=== PATIENT | female | born 1960 | race Caucasian/White ===

== ENCOUNTER 2016-04-13 11:38 | Emergency (ER) | payer SELFPAY ==
[~2016-04-13] VITALS: Ht 170.2 cm; Wt 80.0 kg
[~2016-04-13 11:38] MED LIST: CLIN1CAP6 PO; IBUP800T23 PO; MAGICADU2 SWISH-SPIT; PERI0.126 SWISH-SPIT; PRED-503 PO; ROBA500T PO
[2016-04-13 11:42] VITALS: BP 147/71; PULSE 100; RESP 15; TEMP 98.2; O2SAT 96
[2016-04-13] MEDS ORDERED: CELE40TA PO (11:51)
--- NOTE | 2016-04-13 12:11 | PD ---
HPI Chief Complaint: Medical Clearance Time Seen by Provider: 12:02 Travel History International Travel<30 days: No Contact w/Intl Traveler<30days: No Traveled to known affect area: No History of Present Illness HPI 56-year-old female here for evaluation because she does not recall what occurred during 2 hours of her life yesterday. Apparently she went to [facility] yesterday at around 11 AM. She ordered food and placed on a table. She then was seen wandering outside of [facility], and [facility] staff contacted her at around 1 :30 PM to ask her if she was all right. She told him that she felt well, however when she looked at her watch it was 2 hours after she had initially arrived to [facility]. She does not recall what occurred during this time. She states that she works 2 jobs and has had only 1 hour of sleep in the last 6 days and believes that this might be the culprit. She does not take any drugs or medications. Her Celexa prescription ran out about one month ago. No alcohol. No headaches. No chest pain or dyspnea. Patient also has noticed bilateral lower extremity edema. No history of DVT or PE. She is having some cramping sensation in her bilateral legs. No paresthesias or motor deficits. No history of seizures. She states that yesterday afternoon after the event occurred she went home and fell asleep, and that is why she was not evaluated yesterday. PFSH Past Medical History Hx Anticoagulant Therapy: No ADD: Yes ADHD: Yes Blood Disorders: No Anxiety: Yes Depression: Yes Cancer: Yes (R BREAST CANCER) Cardiovascular Problems: No Chemotherapy: No Chest Pain: Yes Cerebrovascular Accident: No Diabetes: No Diminished Hearing: No Endocrine: Yes (HYPOGLYCEMIA) Gastrointestinal Disorders: No Genitourinary: No Hepatitis: No Hiatal Hernia: No Immune Disorder: No Implanted Vascular Access Dvce: Yes Musculoskeletal: Yes Neurologic: No Psychiatric: Yes Respiratory: No Radiation Therapy: Yes Thyroid Disease: No PNEUMOCCOCAL Vaccine (Year): 2 Menopausal: Yes Dilation and Curettage (D&C): Yes Past Surgical History Abdominal Surgery: No AICD: No Cardiac Surgery: No Ear Surgery: No Endocrine Surgery: No Eye Surgery: No Genitourinary Surgery: No Gynecologic Surgery: Yes (D&C) Hysterectomy: No Joint Replacement: No Mastectomy: Yes (RT MASTECTOMY W/ RECONSTRUCTION 12/2011) Neurologic Surgery: No Oral Surgery: No Pacemaker: No Thoracic Surgery: Yes (PORT INSERTION, R MASTECTOMY) Social History Alcohol Use: Yes Tobacco Use: Yes (1PPD) Substance Use: No Allergies-Medications (Allergen,Severity, Reaction): Coded Allergies: No Known Allergies (Verified , 03/18/16) Reported Meds & Prescriptions Reported Meds & Active Scripts Active Reported Celexa (Citalopram Hydrobromide) 40 Mg Tab 40 Mg PO DAILY Review of Systems Except as stated in HPI: all other systems reviewed are Neg Physical Exam Narrative GENERAL: Well-developed, well-nourished, awake, alert, comfortable, no acute distress. SKIN: Warm and dry. HEAD: Atraumatic. Normocephalic. EYES: Pupils equal and round. No scleral icterus. No injection or drainage. ENT: Mucous membranes pink and moist. NECK: Trachea midline. No JVD. No nuchal rigidity. CARDIOVASCULAR: Regular rate and rhythm. RESPIRATORY: No accessory muscle use. Clear to auscultation. Breath sounds equal bilaterally. GASTROINTESTINAL: Abdomen soft, non-tender, nondistended. MUSCULOSKELETAL: No obvious deformities. No clubbing. No cyanosis. No edema. NEUROLOGICAL: Awake and alert. No obvious cranial nerve deficits. Motor grossly within normal limits. Normal speech. No focal deficits. PSYCHIATRIC: Appropriate mood and affect; insight and judgment normal. Data Data Last Documented VS Vital Signs Date Time Temp Pulse Resp B/P Pulse Ox O2 Delivery O2 Flow Rate FiO2 04/13/16 12:13 96 Room Air 04/13/16 11:42 98.2 100 15 147/71 Orders Basic Metabolic Panel (Bmp) (04/13/16 12:07) Complete Blood Count With Diff (04/13/16 12:07) Magnesium (Mg) (04/13/16 12:07) Prothrombin Time / Inr (Pt) (04/13/16 12:07) Act Partial Throm Time (Ptt) (04/13/16 12:07) Ecg Monitoring (04/13/16 12:07) Iv Access Insert/Monitor (04/13/16 12:07) Oximetry (04/13/16 12:07) Sodium Chloride 0.9% Flush (Ns Flush) (04/13/16 12:15) Ct Brain W/O Iv Contrast(Rout) (04/13/16 ) Us Leg Venous Doppler Bilat (04/13/16 ) Electrocardiogram (04/13/16 ) Labs Laboratory Tests Test 04/13/16 12:22 White Blood Count 8.7 TH/MM3 Red Blood Count 4.56 MIL/MM3 Hemoglobin 13.7 GM/DL Hematocrit 39.4 % Mean Corpuscular Volume 86.5 FL Mean Corpuscular Hemoglobin 30.0 PG Mean Corpuscular Hemoglobin 34.6 % Concent Red Cell Distribution Width 13.4 % Platelet Count 233 TH/MM3 Mean Platelet Volume 8.3 FL Neutrophils (%) (Auto) 72.9 % Lymphocytes (%) (Auto) 16.8 % Monocytes (%) (Auto) 8.0 % Eosinophils (%) (Auto) 1.2 % Basophils (%) (Auto) 1.1 % Neutrophils # (Auto) 6.4 TH/MM3 Lymphocytes # (Auto) 1.5 TH/MM3 Monocytes # (Auto) 0.7 TH/MM3 Eosinophils # (Auto) 0.1 TH/MM3 Basophils # (Auto) 0.1 TH/MM3 CBC Comment DIFF FINAL Differential Comment Prothrombin Time 10.8 SEC Prothromb Time International 1.0 RATIO Ratio Activated Partial 25.4 SEC Thromboplast Time Sodium Level 139 MEQ/L Potassium Level 3.9 MEQ/L Chloride Level 105 MEQ/L Carbon Dioxide Level 26.2 MEQ/L Anion Gap 8 MEQ/L Blood Urea Nitrogen 19 MG/DL Creatinine 0.93 MG/DL Estimat Glomerular Filtration 62 ML/MIN Rate Random Glucose 87 MG/DL Calcium Level 8.7 MG/DL Magnesium Level 1.9 MG/DL MDM Medical Decision Making Medical Screen Exam Complete: Yes Emergency Medical Condition: Yes Differential Diagnosis Sleep deprivation, electrolyte abnormality, intracranial abnormality, DVT, venous insufficiency, fluid overload, renal insufficiency, dissociative fugue Narrative Course Vital signs reviewed. CBC is unremarkable. BMP is unremarkable. Head CT read as normal exam. Bilateral lower extremity duplex read as normal exam. Patient was made aware of all findings. She is resting comfortably. She is completely asymptomatic here in the emergency department. I am not sure what caused her symptoms yesterday. Sleep deprivation could be the culprit as she has only had a couple hours of sleep in the last 6 days. Her bilateral lower extremity edema is likely secondary to venous insufficiency/standing on her feet all day. I believe she is stable for discharge home with outpatient follow -up with her primary care physician this week. She was informed on when to return to the emergency department. She verbalizes understanding and agreement with plan. Diagnosis Primary Impression: Sleep deprivation Additional Impression: Bilateral leg edema Referrals: Primary Care Physician 3 days Additional Instructions: Follow-up with your primary care physician this week. Return to the emergency department for worsening symptoms or any other concerns. Disposition: 01 DISCHARGE HOME Condition: Stable David Valenzuela MD Apr 13, 2016 12:11
[2016-04-13 12:13] VITALS: O2SAT 96
[2016-04-13] MEDS ORDERED: SODIUM CHLORIDE 0.9% FLUSH 5 ML FLUSH IVF PRN (12:15)
[2016-04-13 12:29] LABS: AUTOMATED NEUTROPHIL # 6.4 TH/MM3 (1.8-7.7); BASOPHIL # 0.1 TH/MM3 (0-0.2); BASOPHIL % 1.1 % (0.0-2.0); EOSINOPHIL # 0.1 TH/MM3 (0-0.4); EOSINOPHIL % 1.2 % (0.0-4.0); HEMATOCRIT 39.4 % (35.0-46.0); HEMO FLAGS DIFF FINAL; LYMPH % 16.8 % (9.0-44.0); LYMPHOCYTE # 1.5 TH/MM3 (1.0-4.8); MEAN CELL VOLUME 86.5 FL (80.0-100.0); MEAN CORPUSCULAR HGB CONC 34.6 % (32.0-36.0); NEUT % 72.9 % (16.0-70.0); PLATELET COUNT 233 TH/MM3 (150-450); RED BLOOD COUNT 4.56 MIL/MM3 (4.00-5.30); RED CELL DISTRIBUTION WIDTH 13.4 % (11.6-17.2); WHITE BLOOD COUNT 8.7 TH/MM3 (4.0-11.0)
[2016-04-13 12:44] LABS: BICARBONATE 26.2 MEQ/L (21.0-32.0); MAGNESIUM 1.9 MG/DL (1.5-2.5); POTASSIUM 3.9 MEQ/L (3.5-5.1)
[2016-04-13 12:48] LABS: APTT (PATIENT) 25.4 SEC (24.3-30.1); PROTHROMBIN TIME - PATIENT 10.8 SEC (9.8-11.6)
--- NOTE | 2016-04-13 13:15 | RADRPT ---
EXAM DATE/TIME: 04/13/2016 12:48 [facility] COMPARISON: No previous studies available for comparison. INDICATIONS : Bilateral leg swelling. MEDICAL HISTORY : Breast cancer. Hypoglycemia. SURGICAL HISTORY : Right mastectomy. Port placement. Dilation and curettage. ENCOUNTER: Initial ACUITY: 3 days PAIN SCORE: 0/10 LOCATION: Bilateral legs. TECHNIQUE: Venous ultrasound of the left and right leg was performed from the inguinal ligament to the proximal calf. Real-time, color Doppler and spectral tracing, compression and augmentation techniques were us ed. FINDINGS: RIGHT LEG: There is normal compressibility of the deep venous system from the inguinal region to the proximal ca lf. No echogenic clot is seen in the lumen of the common femoral, femoral, popliteal, and posterior tibial veins. There is a normal response of the venous system to proximal and distal augmentation an d respiration. LEFT LEG: There is normal compressibility of the deep venous system from the inguinal region to the proximal ca lf. No echogenic clot is seen in the lumen of the common femoral, femoral, popliteal, and posterior tibial veins. There is a normal response of the venous system to proximal and distal augmentation an d respiration. CONCLUSION: Normal examination. Jimy Cheung MD on April 13, 2016 at 13:13 Board Certified Radiologist. This report was verified electronically.
--- NOTE | 2016-04-13 13:28 | RADRPT ---
EXAM DATE/TIME: 04/13/2016 13:17 [facility] COMPARISON: CT BRAIN W/O CONTRAST, August 09, 2012, 8:55. INDICATIONS : Patient states she blanked out yesterday. RADIATION DOSE: 56.35 CTDIvol (mGy) MEDICAL HISTORY : Carcinoma, breast. SURGICAL HISTORY : Mastectomy, right. ENCOUNTER: Initial ACUITY: 2 days PAIN SCALE: 0/10 LOCATION: cranial TECHNIQUE: Multiple contiguous axial images were obtained of the head. Using automated exposure control and adj ustment of the mA and/or kV according to patient size, radiation dose was kept as low as reasonably a chievable to obtain optimal diagnostic quality images. FINDINGS: CEREBRUM: The ventricles are normal for age. No evidence of midline shift, mass lesion, hemorrhage or acute in farction. No extra-axial fluid collections are seen. POSTERIOR FOSSA: The cerebellum and brainstem are intact. The 4th ventricle is midline. The cerebellopontine angle i s unremarkable. EXTRACRANIAL: The visualized portion of the orbits is intact. SKULL: The calvaria is intact. No evidence of skull fracture. CONCLUSION: Normal examination. Jimy Cheung MD on April 13, 2016 at 13:27 Board Certified Radiologist. This report was verified electronically.
[2016-04-13 13:44] VITALS: PULSE 80
--- NOTE | 2016-04-14 19:43 | EKG ---
Date Performed: 04/13/2016 Time Performed: 12:17:00 PTAGE: 56 years EKG: Sinus rhythm NORMAL ECG PREVIOUS TRACING : 05/17/2013 09.39 DOCTOR: Antonio Shaw Interpretating Date/Time 04/14/2016 19:36:51
== END 2016-04-13 14:17 | disposition home or self-care (01) ==
LOC: NEPA 11:38
DX: R60.0 Localized edema (principal); E16.2 Hypoglycemia, unspecified; F41.8 Other specified anxiety disorders; F17.210 Nicotine dependence, cigarettes, uncomplicated; Z72.820 Sleep deprivation; Z85.3 Personal history of malignant neoplasm of breast
CPT/HCPCS: 70450; 80048; 83735; 85025; 85610; 85730; 93005; 93970

== ENCOUNTER 2016-04-26 13:25 | Emergency (ER) | payer SELFPAY ==
[~2016-04-26] VITALS: Ht 170.2 cm; Wt 77.0 kg
[~2016-04-26 13:25] MED LIST changes: +CELE40TA PO; -CLIN1CAP6 PO; -IBUP800T23 PO; -MAGICADU2 SWISH-SPIT; -PERI0.126 SWISH-SPIT; -PRED-503 PO; -ROBA500T PO
[2016-04-26 13:27] VITALS: BP 132/68; PULSE 100; RESP 18; TEMP 97.6; O2SAT 98
--- NOTE | 2016-04-26 13:48 | PD ---
HPI Chief Complaint: Complaint Time Seen by Provider: 13:44 Travel History International Travel<30 days: No Contact w/Intl Traveler<30days: No Traveled to known affect area: No History of Present Illness HPI 56-year-old female presents to the emergency department with complaint of dysuria, urgency, frequency , hesitancy 3 days. Denies hematuria. Denies nausea, vomiting, abdominal pain. Denies fever, chills. Denies low back pain. Denies vaginal discharge, odor, itch, lesions. Has not taken any medications to alleviate her symptoms. Has tried increasing her fluid intake to flush her urinary tract. Has history of urinary tract infections and symptoms are similar. No known allergies. Denies history of kidney stones. No other modifying factors or associated signs and symptoms. PFSH Past Medical History Hx Anticoagulant Therapy: No ADD: Yes ADHD: Yes Blood Disorders: No Anxiety: Yes Depression: Yes Cancer: Yes (R BREAST CANCER) Cardiovascular Problems: Yes (CAD) Chemotherapy: Yes ([id number] for breast cancer ) Chest Pain: Yes Cerebrovascular Accident: No Diabetes: No Diminished Hearing: No Endocrine: Yes (HYPOGLYCEMIA) Gastrointestinal Disorders: No Genitourinary: No Hepatitis: No Hiatal Hernia: No Immune Disorder: No Implanted Vascular Access Dvce: Yes Musculoskeletal: Yes Neurologic: No Psychiatric: Yes Respiratory: No Radiation Therapy: Yes Thyroid Disease: No PNEUMOCCOCAL Vaccine (Year): 2 ?: Unknown Menopausal: Yes Dilation and Curettage (D&C): Yes Past Surgical History Abdominal Surgery: No AICD: No Cardiac Surgery: No Ear Surgery: No Endocrine Surgery: No Eye Surgery: No Genitourinary Surgery: No Gynecologic Surgery: Yes (D&C) Hysterectomy: No Joint Replacement: No Mastectomy: Yes (RT MASTECTOMY W/ RECONSTRUCTION 12/2011) Neurologic Surgery: No Oral Surgery: No Pacemaker: No Thoracic Surgery: Yes (PORT INSERTION, R MASTECTOMY) Social History Alcohol Use: Yes Tobacco Use: Yes (1PPD) Substance Use: No Allergies-Medications (Allergen,Severity, Reaction): Coded Allergies: No Known Allergies (Verified , 04/26/16) Reported Meds & Prescriptions Reported Meds & Active Scripts Active Ibuprofen 800 Mg Tab 800 Mg PO Q6HR PRN Pyridium (Phenazopyridine HCl) 100 Mg Tab 100 Mg PO Q8H PRN Keflex (Cephalexin) 500 Mg Cap 500 Mg PO Q12H 7 Days Reported Celexa (Citalopram Hydrobromide) 40 Mg Tab 40 Mg PO DAILY Review of Systems Except as stated in HPI: all other systems reviewed are Neg Physical Exam Narrative GENERAL: Well-nourished, well-developed female patient, in no acute distress; afebrile, nontoxic-appearing SKIN: Warm and dry. No rash. HEAD: Atraumatic. Normocephalic. EYES: Pupils equal and round. No scleral icterus. No injection or drainage. ENT: Mucosa pink and moist. NECK: Trachea midline. CARDIOVASCULAR: Regular rate. RESPIRATORY: No accessory muscle use. GASTROINTESTINAL: Abdomen soft, non-tender, nondistended. Hepatic and splenic margins not palpable. Bowel sounds are active 4 quadrants. Bladder nontender and nondistended. MUSCULOSKELETAL: No obvious deformities. No clubbing. No cyanosis. No edema. BACK: No CVA tenderness NEUROLOGICAL: Awake and alert. Oriented 3. No obvious cranial nerve deficits. Motor grossly within normal limits. Normal speech. Moves all extremities. 5/5 strength to all extremities. PSYCHIATRIC: Appropriate mood and affect; insight and judgment normal. Data Data Last Documented VS Vital Signs Date Time Temp Pulse Resp B/P Pulse Ox O2 Delivery O2 Flow Rate FiO2 04/26/16 13:27 97.6 100 18 132/68 98 Room Air Orders Urinalysis - C+S If Indicated (04/26/16 13:35) Urine Culture (04/26/16 14:00) Labs Laboratory Tests Test 04/26/16 14:00 Urine Color YELLOW Urine Turbidity HAZY Urine pH 5.5 Urine Specific [place] 1.016 Urine Protein NEG mg/dL Urine Glucose (UA) NEG mg/dL Urine Ketones NEG mg/dL Urine Occult Blood NEG Urine Nitrite NEG Urine Bilirubin NEG Urine Urobilinogen LESS THAN 2.0 MG/DL Urine Leukocyte Esterase LARGE Urine WBC 62 /hpf Urine Squamous Epithelial 4 /hpf Cells Urine Mucus FEW /lpf Microscopic Urinalysis Comment CULTURE INDICATED MDM Medical Decision Making Medical Screen Exam Complete: Yes Emergency Medical Condition: Yes Medical Record Reviewed: Yes Differential Diagnosis Urinary tract infection, pyelonephritis, cystitis Narrative Course 56-year-old female with urinary symptoms 3 days. No CVA tenderness. No abdominal pain. Denies vaginal symptoms. Patient is afebrile and nontoxic- appearing. Denies fever, chills, nausea, vomiting. Urinalysis ordered. 1448: Urinalysis with signs of infection. Keflex and Pyridium prescribed for home. Patient is medically cleared and stable for discharge. Discussed reasons to return to the emergency department. Instructed patient to follow up with primary care provider. Patient agrees with treatment plan. The patients vital signs are stable and the patient is stable for outpatient follow-up and treatment. Patient discharged home, stable and in no acute distress. Diagnosis Primary Impression: UTI (urinary tract infection) Qualified Code: N39.0 - Urinary tract infection without hematuria, site unspecified Referrals: Primary Care Physician Patient Instructions: General Instructions, Urinary Tract Infection in Women ( ED) Departure Forms: Tests/Procedures, Work Release Enter return to work date: Apr 27, 2016 Additional Instructions: Take antibiotics as prescribed and complete full course Take Pyridium for bladder spasms: Pyridium will turn your urine bright orange Drink plenty of fluids Maintain good personal hygiene Follow-up with primary care provider Return to the emergency department immediately with worsening of symptoms Med/Other Pt SpecificInfo: Prescription(s) given Scripts Ibuprofen 800 Mg [id number] Mg PO Q6HR PRN (PAIN) #30 TAB Ref 0 Prov:Stephania Chou 04/26/16 Phenazopyridine (Pyridium)100 Mg [id number] Mg PO Q8H PRN (DYSURIA) #10 TAB Ref 0 Prov:Stephania Chou 04/26/16 Cephalexin (Keflex)500 Mg [id number] Mg PO Q12H 7 Days Ref 0 Prov:Stephania Chou 04/26/16 Disposition: 01 DISCHARGE HOME Condition: Stable Stephania Chou Apr 26, 2016 13:48
[2016-04-26 14:43] LABS: BLOOD, URINE NEG (NEG); COMMENT (UR) CULTURE INDICATED; CULTURE IF INDICATED CULTURE INDICATED; GLUCOSE,URINE NEG (NEG); KETONE, URINE NEG (NEG); MUCUS URINE FEW /lpf (OCC); NITRITE,URINE NEG (NEG); PH, URINE 5.5 (5.0-8.5); SQUAMOUS EPITHELIAL CELL URINE 4 /hpf (0-5); URINE COLOR YELLOW (YELLW/STRAW)
[2016-04-26] MEDS ORDERED: CEPH-460 PO (14:49)
[2016-04-26] MEDS ORDERED: PHEN0.4T PO (14:49)
[2016-04-26] MEDS ORDERED: IBUP800T23 PO (14:50)
== END 2016-04-26 14:59 | disposition home or self-care (01) ==
LOC: NEPB 13:25
DX: N39.0 Urinary tract infection, site not specified (principal); B96.89 Other specified bacterial agents as the cause of diseases classified elsewhere
CPT/HCPCS: 81001; 87086; 99283

== ENCOUNTER 2016-06-29 12:42 | Emergency (ER) | payer SELFPAY ==
[~2016-06-29] VITALS: Ht 170.2 cm; Wt 77.0 kg
[~2016-06-29 12:42] MED LIST changes: +CEPH-460 PO; +IBUP800T23 PO; +PHEN0.4T PO
[2016-06-29 12:57] VITALS: BP 140/78; PULSE 91; RESP 18; TEMP 98.3; O2SAT 97
--- NOTE | 2016-06-29 13:35 | PD ---
HPI Chief Complaint: Cold / Flu Symptoms Time Seen by Provider: 13:10 Travel History International Travel<30 days: No Contact w/Intl Traveler<30days: No Traveled to known affect area: No History of Present Illness HPI Patient is 56 year old female presenting to emergency for evaluation of a cough. Patient states her cough has been ongoing for several months. She states it'll get better and then get worse again. She denies any fever, chills , nausea, vomiting, headache or shortness of breath. Patient is a daily tobacco user, she's been smoking since she was a teenager. Patient is not been evaluated by her primary care provider for this problem. Patient states that she felt as if she was getting worse so she presented to the emergency department for evaluation. PFSH Past Medical History Hx Anticoagulant Therapy: No ADHD: Yes Blood Disorders: No Anxiety: Yes Depression: Yes Cancer: Yes (R BREAST CANCER) Chemotherapy: Yes ([id number] for breast cancer ) Chest Pain: Yes Cerebrovascular Accident: No Coronary Artery Disease: Yes Diabetes: No Diminished Hearing: No Gastrointestinal Disorders: No Genitourinary: No Hepatitis: No Hiatal Hernia: No Immune Disorder: No Implanted Vascular Access Dvce: Yes Neurologic: No Respiratory: No Radiation Therapy: Yes Thyroid Disease: No PNEUMOCCOCAL Vaccine (Year): 2 Menopausal: Yes Dilation and Curettage (D&C): Yes Past Surgical History Abdominal Surgery: No AICD: No Cardiac Surgery: No Ear Surgery: No Endocrine Surgery: No Eye Surgery: No Genitourinary Surgery: No Gynecologic Surgery: Yes (D&C) Hysterectomy: No Joint Replacement: No Mastectomy: Yes (RT MASTECTOMY W/ RECONSTRUCTION 12/2011) Neurologic Surgery: No Oral Surgery: No Pacemaker: No Thoracic Surgery: Yes (PORT INSERTION, R MASTECTOMY) Social History Alcohol Use: Yes Tobacco Use: Yes (1PPD) Substance Use: No Allergies-Medications (Allergen,Severity, Reaction): Coded Allergies: No Known Allergies (Verified , 06/29/16) Reported Meds & Prescriptions Reported Meds & Active Scripts Active Ibuprofen 800 Mg Tab 800 Mg PO Q6HR PRN Pyridium (Phenazopyridine HCl) 100 Mg Tab 100 Mg PO Q8H PRN Keflex (Cephalexin) 500 Mg Cap 500 Mg PO Q12H 7 Days Reported Celexa (Citalopram Hydrobromide) 40 Mg Tab 40 Mg PO DAILY Review of Systems Except as stated in HPI: all other systems reviewed are Neg General / Constitutional: No: Fever, Chills HENT: Positive: Rhinitis Cardiovascular: No: Chest Pain or Discomfort Respiratory: Positive: Cough, No: Shortness of Breath, Wheezing, Pleuritic Pain Gastrointestinal: No: Nausea, Abdominal Pain Musculoskeletal: No: Myalgias Physical Exam Narrative GENERAL: Well-nourished, well-developed patient. SKIN: Focused skin assessment warm/dry. HEAD: Normocephalic. EYES: No scleral icterus. No injection or drainage. NECK: Supple, trachea midline. No JVD or lymphadenopathy. CARDIOVASCULAR: Regular rate and rhythm without murmurs, gallops, or rubs. RESPIRATORY: Breath sounds equal bilaterally. No accessory muscle use. No wheezes, rhonchi, rales noted. GASTROINTESTINAL: Abdomen soft, non-tender, nondistended. MUSCULOSKELETAL: No cyanosis, or edema. BACK: Nontender without obvious deformity. No CVA tenderness. Data Data Last Documented VS Vital Signs Date Time Temp Pulse Resp B/P Pulse Ox O2 Delivery O2 Flow Rate FiO2 06/29/16 12:57 98.3 91 18 140/78 97 Room Air Orders Chest, Pa & Lat (06/29/16 ) [facility] Medical Decision Making Medical Screen Exam Complete: Yes Emergency Medical Condition: Yes Interpretation(s) Last Impressions Chest X-Ray 06/29/16 0000 Signed Impressions: Service Date/Time: Wednesday, June 29, 2016 13:34 - CONCLUSION: No acute disease. Pankaj Clement MD FACR Vital Signs Date Time Temp Pulse Resp B/P Pulse Ox O2 Delivery O2 Flow Rate FiO2 06/29/16 12:57 98.3 91 18 140/78 97 Room Air Differential Diagnosis Chronic bronchitis secondary to undiagnosed COPD versus pneumonia versus allergic rhinitis versus other Narrative Course Patient is 56-year-old female presenting to emergency department for evaluation of several months of a cough. Her vital signs are stable, she is well oxygenated on room air. Will obtain chest x-ray to rule out acute infectious process however did duration of her symptoms patient likely have undiagnosed COPD. Chest x-ray shows no acute disease. Patient will be provided with a prescription for azithromycin as well as Tessalon Perles. She was strongly encouraged to follow-up with her primary doctor for further evaluation and management in the primary care setting. Discussed with patient the possible need for a pulmonary function test. Discussed with patient the need to quit smoking. Patient verbalized understanding of instructions. Patient is stable for discharge. Diagnosis Primary Impression: Cough present for greater than 3 weeks Referrals: Primary Care Physician 1 week Patient Instructions: COPD (Chronic Obstructive Pulmonary Disease) (ED), Chronic Cough (ED), General Instructions Additional Instructions: Follow-up with her primary doctor for further evaluation and management, possible pulmonary function test Take medications as directed Try and decrease tobacco use, abstain if possible Return to emergency department for any new or worsening symptoms Med/Other Pt SpecificInfo: Prescription(s) given Scripts Benzonatate (Tessalon Perles)100 Mg [id number] Mg PO TID PRN (COUGH) #12 CAP Ref 0 Prov:Bell Birch 06/29/16 Azithromycin 250 Mg [id number] Mg PO DIRECTED #6 TAB Ref 0 Take 2 tabs (500 mg) on day 1 then 1 tab daily x 4 days. Prov:Bell Birch 06/29/16 Disposition: 01 DISCHARGE HOME Condition: Stable Bell Birch Jun 29, 2016 13:35
--- NOTE | 2016-06-29 13:41 | RADRPT ---
EXAM DATE/TIME: 06/29/2016 13:34 [facility] COMPARISON: CHEST PA & LAT, June 07, 2012, 13:12. INDICATIONS : Cough and congestion for a week. MEDICAL HISTORY : Carcinoma, breast. SURGICAL HISTORY : None. Breast tissue jewel bearing facer. ENCOUNTER: Initial ACUITY: 1 week PAIN SCORE: 5/10 LOCATION: Bilateral chest FINDINGS: PA and lateral views of the chest demonstrate the lungs to be symmetrically aerated without evidence of mass, infiltrate or effusion. The cardiomediastinal contours are unremarkable. Osseous structure s are intact. Tissue jewel bearing facer on the right. CONCLUSION: No acute disease. Pankaj Clement MD FACR on June 29, 2016 at 13:38 Board Certified Radiologist. This report was verified electronically.
[2016-06-29] MEDS ORDERED: AZIT250T3 PO (13:55)
[2016-06-29] MEDS ORDERED: BENZ100 PO (13:55)
== END 2016-06-29 14:02 | disposition home or self-care (01) ==
LOC: NETRI 12:42
DX: R05 Cough (principal)
CPT/HCPCS: 71020; 99283

== ENCOUNTER 2016-09-26 02:44 | Emergency (ER) | payer SELFPAY ==
[~2016-09-26] VITALS: Ht 170.2 cm; Wt 77.2 kg
[~2016-09-26 02:44] MED LIST changes: +AZIT250T3 PO; +BENZ100 PO
[2016-09-26 02:46] VITALS: BP 129/70; PULSE 91; RESP 16; TEMP 98.7; O2SAT 96
[2016-09-26] MEDS ORDERED: CELE40TA PO (02:57)
--- NOTE | 2016-09-26 03:26 | PD ---
HPI Chief Complaint: Skin Problem Time Seen by Provider: 03:23 Travel History International Travel<30 days: No Contact w/Intl Traveler<30days: No Traveled to known affect area: No History of Present Illness HPI 56-year-old white female presents to emergency Department with complaints of sores on her inner thighs for the last week. She states that her legs syndrome and rubbing together causing the skin to break down. It has become increasingly painful. Patient's concerned that she may be getting a secondary infection. She denies any fever or chills. No drainage. Symptoms are mild to moderate. Worsened by flexion and rubbing. No alleviating factor. Patient is homeless. PFSH Past Medical History Hx Anticoagulant Therapy: No ADHD: Yes Blood Disorders: No Anxiety: Yes Depression: Yes Cancer: Yes Chemotherapy: Yes ([id number] for breast cancer ) Chest Pain: Yes Cerebrovascular Accident: No Coronary Artery Disease: Yes Diabetes: No Diminished Hearing: No Gastrointestinal Disorders: No Genitourinary: No Hepatitis: No Hiatal Hernia: No Immune Disorder: No Implanted Vascular Access Dvce: Yes Neurologic: No Psychiatric: Yes Respiratory: No Radiation Therapy: Yes Thyroid Disease: No PNEUMOCCOCAL Vaccine (Year): 2 Menopausal: Yes Dilation and Curettage (D&C): Yes Past Surgical History Abdominal Surgery: No AICD: No Cardiac Surgery: No Ear Surgery: No Endocrine Surgery: No Eye Surgery: No Genitourinary Surgery: No Gynecologic Surgery: Yes (D&C) Hysterectomy: No Joint Replacement: No Mastectomy: Yes (RT MASTECTOMY W/ RECONSTRUCTION 12/2011) Neurologic Surgery: No Oral Surgery: No Pacemaker: No Thoracic Surgery: Yes (PORT INSERTION, R MASTECTOMY) Social History Alcohol Use: No Tobacco Use: Yes Substance Use: No Allergies-Medications (Allergen,Severity, Reaction): Coded Allergies: No Known Allergies (Verified , 09/26/16) Reported Meds & Prescriptions Reported Meds & Active Scripts Active Reported Celexa (Citalopram Hydrobromide) 40 Mg Tab 40 Mg PO DAILY Review of Systems Except as stated in HPI: all other systems reviewed are Neg Physical Exam Narrative GENERAL: This is a well-nourished, well-developed patient, in no apparent distress. SKIN: Patient has superficial skin breakdown to the inner aspects of both thighs. The area measures approximately 2 x 3 cm bilaterally. There is no purulent drainage. No signs of secondary wound infection. This is merely from friction and being moist., ecchymoses or lesions. Warm and dry. HEAD: Atraumatic. Normocephalic. EYES: PERRL, EOMI, no discharge or injection. No scleral icterus. EARS: Clear NOSE: Nasal turbinates appear normal. THROAT: Mucosa pink and moist. Airway patent. NECK: Trachea midline. supple, moves head freely. LUNGS: Clear to auscultation. CV: Regular in rhythm. ABDOMEN: Soft nontender. EXT: No clubbing cyanosis or edema. Data Data Last Documented VS Vital Signs Date Time Temp Pulse Resp B/P Pulse Ox O2 Delivery O2 Flow Rate FiO2 09/26/16 03:03 91 16 09/26/16 02:46 98.7 129/70 96 Room Air MDM Medical Decision Making Medical Screen Exam Complete: Yes Emergency Medical Condition: Yes Medical Record Reviewed: Yes Differential Diagnosis MDM: High Differential diagnoses: Abscess, folliculitis, cellulitis, lymphangitis, abrasion, contact dermatitis, friction dermatitis Narrative Course pATIENT'S WOUNDS ARE CLEANSED AND DRESSED BY THE NURSING STAFF. Diagnosis Primary Impression: friction dermatitis Patient Instructions: General Instructions Additional Instructions: Rest. Daily wound care with soap and water apply Neosporin. Keep her skin from rubbing together. Follow-up with medical doctor 1 week. Med/Other Pt SpecificInfo: No Meds Exist/No RX given, Wound Care Disposition: DISCHARGE HOME Condition: Stable Anthony Montague Sep 26, 2016 03:26
== END 2016-09-26 06:46 | disposition home or self-care (01) ==
LOC: NEPD 02:44
DX: L30.4 Erythema intertrigo (principal); F41.9 Anxiety disorder, unspecified; F32.9 Major depressive disorder, single episode, unspecified; I25.10 Atherosclerotic heart disease of native coronary artery without angina pectoris; Z59.0 Homelessness; Z79.899 Other long term (current) drug therapy
CPT/HCPCS: 99282